=== PATIENT | male | born 1950 | race Caucasian/White ===

== ENCOUNTER 2017-09-11 22:22 | Observation (INO) | payer OTHER, BC ==
[~2017-09-11] VITALS: Ht 175.3 cm; Wt 84.6 kg
[~2017-09-11 22:22] MED LIST: ALBUTEROL2.5 MG/3 M IH; ALDACTONE25 MG PO; ALLEGRA180 MG PO; ALPRAZOLAM0.25 M2 PO; ALPRAZOLAM0.25 MG PO; ATENOLOL50 M1 PO; B-12500 MC1 SL; CLONIDINE HCL0.1 MG PO; CYANOCOBAL1000 MCG/2 IM; DILAUDID4 MG PO; ENTOCORT EC3 MG PO; FLORINEF ACETA0.1 MG PO; FLOVENT DISKUS1 DIS2 IH; HUMALOG100 UNIT/2 SC; HYDRALAZINE HCL25 MG PO; HYDROCHLOROTH12.5 M3 PO; KLOR-CON 1010 ME1 PO; LANTUS 3 M100 UNITS1 SC; LASIX20 MG PO; LIPITOR10 MG PO; LOSARTAN POTAS100 MG PO; MAGNESIUM400 M1 PO; NEXIUM40 MG PO; ONGLYZA5 MG; ONGLYZA5 MG PO; PREDNISONE5 MG PO; RABEPRAZOLE SOD20 MG PO; TENORMIN50 MG PO; TRIBENZOR 40-51 EAC4 PO; TRIBENZOR 40-51 EAC5; VITAMIN D31000 UNIT PO; WARFARIN SODIUM5 MG PO; XANAX0.25 MG PO; XARELTO20 MG PO; ZANTAC150 M1 PO; ZOFRAN4 MG PO
[2017-09-11 23:11] LABS: HEMATOCRIT 29.7 % (38.0-50.0); MCH 24.8 PG (29.0-34.0); MCV 82.7 FL (86-99); PLATELET COUNT 256 K/uL (156-360); RBC DIS.WIDTH-SD 58.2 % (39-53); RED BLOOD COUNT 3.59 M/uL (4.00-5.50); WHITE BLOOD COUNT 8.7 K/uL (4.1-10.2)
[2017-09-11 23:41] LABS: TROP-I INTERPRETATION NEGATIVE; TROPONIN-I < 0.01 ng/mL (0.0-0.30)
[2017-09-12] LABS: HEMOGLOBIN 8.9 G/DL (12.5-16.6)
[2017-09-12 00:02] LABS: INTER. NORMALIZED RATIO 1.5
[2017-09-12 00:05] LABS: PTT 27.5 SEC (25-37)
[2017-09-12 01:52] LABS: ALBUMIN 3.5 G/DL (3.2-4.8); ALKALINE PHOSPHATASE 66 IU/L (3-129); ALT (GPT) 24 IU/L (3-49); AST (GOT) 19 IU/L (2-34); CHLORIDE 110 MEQ/L (99-109); CREATININE 1.1 MG/DL (0.6-1.3); DIRECT BILIRUBIN 0.1 mg/dL (0.0-0.3); GFR ESTIMATE (CALCULATED) > 59 mL/min/ (58.99-99999); GLUCOSE 170 mg/dL (70-99); POTASSIUM 3.9 MEQ/L (3.7-5.4); SODIUM 142 MEQ/L (136-147); TOTAL BILIRUBIN 0.4 MG/DL (0.0-1.0); TOTAL PROTEIN 5.7 G/DL (6.4-8.3); UREA NITROGEN (BUN) 17 mg/dL (9-23)
[2017-09-12 03:58] LABS: LIPASE 14 U/L (1.0-51.0)
[2017-09-12 05:53] VITALS: BP 146/78
[2017-09-12] MEDS ORDERED: AMIODARONE HCL200 MG PO (06:01)
[2017-09-12] MEDS ORDERED: ELIQUIS5 MG PO (06:02)
[2017-09-12 07:26] VITALS: BP 131/64
[2017-09-12 08:07] LABS: TROP-I INTERPRETATION NEGATIVE; TROPONIN-I < 0.01 ng/mL (0.0-0.30)
[2017-09-12 11:35] LABS: TROP-I INTERPRETATION NEGATIVE; TROPONIN-I < 0.01 ng/mL (0.0-0.30)
[2017-09-13] MEDS ORDERED: TENORMIN25 MG PO (20:15)
[2017-09-13] MEDS ORDERED: KLOR-CON M2020 MEQ PO (20:21)
[2017-09-13] MEDS ORDERED: ROBAXIN500 MG PO (20:22)
[2017-09-13] MEDS ORDERED: FLONASE16 G1 BOTH NARES (20:23)
== END 2017-09-12 15:10 | disposition home or self-care (01) ==
LOC: EME 22:22 → EDOF 09-12 04:43 → ENRESERV 09-12 04:48 → 4SOUTH 09-12 05:26
PROVIDERS: Hospitalist; Nurse Practitioner Family
DX: R07.9 Chest pain, unspecified (principal); R94.31 Abnormal electrocardiogram [ECG] [EKG]; I45.10 Unspecified right bundle-branch block; I48.0 Paroxysmal atrial fibrillation; R00.2 Palpitations; D64.9 Anemia, unspecified; E27.40 Unspecified adrenocortical insufficiency; K50.90 Crohn's disease, unspecified, without complications; R60.0 Localized edema; E86.0 Dehydration; E78.5 Hyperlipidemia, unspecified; I10 Essential (primary) hypertension; E11.9 Type 2 diabetes mellitus without complications; Z86.718 Personal history of other venous thrombosis and embolism; I71.2 Thoracic aortic aneurysm, without rupture; Z79.01 Long term (current) use of anticoagulants; Z87.891 Personal history of nicotine dependence; Z79.52 Long term (current) use of systemic steroids; Z79.4 Long term (current) use of insulin; Z88.0 Allergy status to penicillin; Z88.5 Allergy status to narcotic agent
CPT/HCPCS: 71046; 78582; 80048; 80076; 83690; 83880; 84484; 85027; 85610; 85730; 93005; 99281; 99284; A9540; A9567; G0378

== ENCOUNTER 2017-09-13 13:57 | Inpatient (IN) | payer OTHER, BC ==
[~2017-09-13] VITALS: Ht 175.3 cm; Wt 82.8 kg
[~2017-09-13 13:57] MED LIST changes: +AMIODARONE HCL200 MG PO; +ELIQUIS5 MG PO
[2017-09-13 14:44] LABS: HEMATOCRIT 28.3 % (38.0-50.0); HEMOGLOBIN 8.5 G/DL (12.5-16.6); MCH 24.7 PG (29.0-34.0); MCV 82.3 FL (86-99); PLATELET COUNT 281 K/uL (156-360); RBC DIS.WIDTH-CV 19.2 % (11.8-14.6); RBC DIS.WIDTH-SD 57.1 % (39-53); RED BLOOD COUNT 3.44 M/uL (4.00-5.50); WHITE BLOOD COUNT 8.5 K/uL (4.1-10.2)
[2017-09-13 14:53] LABS: CHLORIDE 109 mEq/L (99-109); SODIUM 140 mEq/L (136-147)
[2017-09-13 14:55] LABS: GLUCOSE 132 mg/dL (70-99)
[2017-09-13 14:59] LABS: CREATININE 0.9 mg/dL (0.6-1.3); GFR ESTIMATE (CALCULATED) > 59 mL/min/ (58.99-99999)
[2017-09-13 15:00] LABS: UREA NITROGEN (BUN) 15 mg/dL (9-23)
[2017-09-13 16:58] LABS: INTER. NORMALIZED RATIO 1.5
[2017-09-13 17:01] LABS: PTT 26.5 SEC (25-37)
[2017-09-13 17:03] LABS: ALBUMIN 3.5 g/dL (3.2-4.8)
[2017-09-13 17:05] LABS: TOTAL PROTEIN 5.7 g/dL (6.4-8.3)
[2017-09-13 17:07] LABS: TOTAL BILIRUBIN 0.7 mg/dL (0.0-1.0)
[2017-09-13 17:08] LABS: ALKALINE PHOSPHATASE 70 IU/L (3-129)
[2017-09-13 17:11] LABS: ALT (GPT) 24 IU/L (3-49); AST (GOT) 18 IU/L (2-34); DIRECT BILIRUBIN 0.3 mg/dL (0.0-0.3)
[2017-09-13 19:56] LABS: APPEARANCE CLEAR ((CLEAR)); BILIRUBIN NEGATIVE; BLOOD NEGATIVE; COLOR STRAW ((YELLOW)); GLUCOSE (STRIP) NEGATIVE; KETONES NEGATIVE; LEUKOCYTES NEGATIVE; NITRITE NEGATIVE; PROTEIN (STRIP) NEGATIVE; UCUL ADDED? NO; UROBILINOGEN 0.2 MG/DL (0.2-1.0)
[2017-09-13] MEDS ORDERED: TENORMIN25 MG PO (20:15)
[2017-09-13] MEDS ORDERED: KLOR-CON M2020 MEQ PO (20:21)
[2017-09-13] MEDS ORDERED: ROBAXIN500 MG PO (20:22)
[2017-09-13] MEDS ORDERED: FLONASE16 G1 BOTH NARES (20:23)
[2017-09-14] VITALS (16 sets, daily range): BP systolic 106–144; BP diastolic 55–85
[2017-09-14 00:51] LABS: C DIFF TOXIN NEGATIVE (NEGATIVE)
[2017-09-14 01:11] LABS: HEMOGLOBIN 7.2 G/DL (12.5-16.6); MCV 82.5 FL (86-99)
[2017-09-14 07:23] LABS: HEMOGLOBIN 7.2 G/DL (12.5-16.6); MCV 82.8 FL (86-99)
[2017-09-14 07:39] LABS: CHLORIDE 108 MEQ/L (99-109); CREATININE 0.9 MG/DL (0.6-1.3); GFR ESTIMATE (CALCULATED) > 59 mL/min/ (58.99-99999); GLUCOSE 125 mg/dL (70-99); POTASSIUM 3.8 MEQ/L (3.7-5.4); SODIUM 141 MEQ/L (136-147); UREA NITROGEN (BUN) 15 mg/dL (9-23)
[2017-09-14 13:48] LABS: HEMATOCRIT 31.9 % (38.0-50.0); MCV 85.1 FL (86-99)
[2017-09-14 13:49] LABS: HEMOGLOBIN 9.3 G/DL (12.5-16.6)
[2017-09-14 18:13] LABS: HEMOGLOBIN 9.9 G/DL (12.5-16.6); MCV 82.9 FL (86-99)
[2017-09-15 06:14] LABS: HEMATOCRIT 29.3 % (38.0-50.0); HEMOGLOBIN 8.9 G/DL (12.5-16.6); MCH 25.1 PG (29.0-34.0); MCHC 30.4 G/DL (30.0-36.0); MCV 82.8 FL (86-99); PLATELET COUNT 215 K/uL (156-360); RBC DIS.WIDTH-CV 18.6 % (11.8-14.6); RBC DIS.WIDTH-SD 56.5 % (39-53); RED BLOOD COUNT 3.54 M/uL (4.00-5.50); WHITE BLOOD COUNT 4.8 K/uL (4.1-10.2)
[2017-09-15 06:38] LABS: CHLORIDE 108 MEQ/L (99-109); CREATININE 0.9 MG/DL (0.6-1.3); GFR ESTIMATE (CALCULATED) > 59 mL/min/ (58.99-99999); GLUCOSE 125 mg/dL (70-99); POTASSIUM 3.5 MEQ/L (3.7-5.4); SODIUM 141 MEQ/L (136-147); UREA NITROGEN (BUN) 10 mg/dL (9-23)
[2017-09-15 07:45] VITALS: BP 138/75
[2017-09-15 11:30] VITALS: BP 126/66
[2017-09-15 16:46] VITALS: BP 138/73
[2017-09-15 23:26] VITALS: BP 91/53
[2017-09-16] VITALS (9 sets, daily range): BP systolic 92–145; BP diastolic 53–88
[2017-09-16 06:09] LABS: HEMATOCRIT 27.1 % (38.0-50.0); HEMOGLOBIN 8.1 G/DL (12.5-16.6); MCH 25.2 PG (29.0-34.0); MCHC 29.9 G/DL (30.0-36.0); MCV 84.2 FL (86-99); PLATELET COUNT 231 K/uL (156-360); RBC DIS.WIDTH-CV 18.7 % (11.8-14.6); RBC DIS.WIDTH-SD 57.2 % (39-53); RED BLOOD COUNT 3.22 M/uL (4.00-5.50); WHITE BLOOD COUNT 6.3 K/uL (4.1-10.2)
[2017-09-16 06:37] LABS: CHLORIDE 109 MEQ/L (99-109); GFR ESTIMATE (CALCULATED) > 59 mL/min/ (58.99-99999); GLUCOSE 129 mg/dL (70-99); POTASSIUM 4.1 MEQ/L (3.7-5.4); SODIUM 141 MEQ/L (136-147); UREA NITROGEN (BUN) 11 mg/dL (9-23)
[2017-09-16 19:55] LABS: HEMATOCRIT 29.5 % (38.0-50.0); MCV 83.6 FL (86-99)
[2017-09-17 06:11] LABS: HEMATOCRIT 29.9 % (38.0-50.0); HEMOGLOBIN 8.9 G/DL (12.5-16.6); MCH 24.9 PG (29.0-34.0); MCHC 29.8 G/DL (30.0-36.0); MCV 83.8 FL (86-99); PLATELET COUNT 209 K/uL (156-360); RBC DIS.WIDTH-CV 18.3 % (11.8-14.6); RBC DIS.WIDTH-SD 55.5 % (39-53); RED BLOOD COUNT 3.57 M/uL (4.00-5.50); WHITE BLOOD COUNT 6.9 K/uL (4.1-10.2)
[2017-09-17 07:25] VITALS: BP 124/64
== END 2017-09-17 11:43 | disposition home or self-care (01) | DRG 394 ==
LOC: EME 13:57 → 5EAST 21:37 → EDOF 21:37 → ENRESERV 21:38 → 5EAST 22:16
PROVIDERS: Hospitalist; Internal Medicine Gastroenterology; Physician Assistant
PROC: 0DBM8ZZ Excision of Descending Colon, Via Natural or Artificial Opening Endoscopic (ICD-10-PCS; principal; 2017-09-13)
PROC: 30233N1 Transfusion of Nonautologous Red Blood Cells into Peripheral Vein, Percutaneous Approach (ICD-10-PCS; principal; 2017-09-13)
PROC: 0DBL8ZZ Excision of Transverse Colon, Via Natural or Artificial Opening Endoscopic (ICD-10-PCS; principal; 2017-09-13)
DX: D12.4 Benign neoplasm of descending colon (principal); D62 Acute posthemorrhagic anemia; I48.0 Paroxysmal atrial fibrillation; J44.9 Chronic obstructive pulmonary disease, unspecified; E78.5 Hyperlipidemia, unspecified; I71.2 Thoracic aortic aneurysm, without rupture; I10 Essential (primary) hypertension; Z86.718 Personal history of other venous thrombosis and embolism; Z79.01 Long term (current) use of anticoagulants; K21.9 Gastro-esophageal reflux disease without esophagitis; E11.9 Type 2 diabetes mellitus without complications; F41.9 Anxiety disorder, unspecified; E27.40 Unspecified adrenocortical insufficiency; I89.0 Lymphedema, not elsewhere classified; D18.03 Hemangioma of intra-abdominal structures; Z87.891 Personal history of nicotine dependence; K62.5 Hemorrhage of anus and rectum; Z90.49 Acquired absence of other specified parts of digestive tract
CPT/HCPCS: 71046; 74177; 78582; 80048; 80076; 81003; 82948; 83690; 83880; 84484; 85014; 85018; 85027; 85610; 85730; 86850; 86900; 86901; 86920; 87493; 87506; 88305; 93005; 94799; 99281; 99284; 99285; A9540; A9567; C9113; G0378; J1815; J7030; J7040; J7512; P9016